=== PATIENT | male | born 1950 | race Caucasian/White ===

== ENCOUNTER 2022-07-20 21:18 | Inpatient (IN) ==
[2022-07-21 03:38] LABS: ABS Basophils 0.1 10^3/ul (0-0.2); ABS Eosinophils 0.9 10^3/ul (0-0.6); ABS Lymphocytes 2.1 10^3/ul (1.0-4.8); ABS Monocytes 1.1 10^3/ul (0-0.8); ABS Neutrophils 4.6 10^3/ul (1.5-7.7); Eosinophil % 10.2 %; Hematocrit 43 % (42-52); Hemoglobin 14.5 g/dL (14.0-18.0); Lymphocyte % 23.6 %; Mean Corpuscular HGB Conc 34 g/dL (31-36); Mean Corpuscular Hemoglobin 32 pg (27-31); Mean Corpuscular Volume 94 fL (80-94); Mean Platelet Volume 7.8 fL (7.4-10.4); Platelet Count 313 10^3/uL (150-450); Red Blood Count 4.55 10^6 /uL (4.18-5.48); Red Cell Distribution Width 13 % (10-15); White Blood Count 8.8 10^3/uL (3.5-10.8)
[2022-07-21 03:47] LABS: Activated Partial Thrombo Time 31.6 seconds (26.0-38.0); INR 1.3 (0.88-1.18)
[2022-07-21 04:26] LABS: ALT 21 U/L (7-52); Albumin 3.6 g/dL (3.2-5.2); Albumin/Globulin Ratio 1.4 (1-3); Alkaline Phosphatase 76 U/L (35-149); Blood Urea Nitrogen 16 mg/dL (6-24); C Reactive Protein 48.71 mg/L (<8.01); CO2 Carbon Dioxide 22 mmol/L (22-32); Calcium 8.8 mg/dL (8.6-10.3); Chloride 103 mmol/L (101-111); Creatinine, Serum 0.89 mg/dL (0.67-1.17); Globulin 2.6 g/dL (2-4); Glucose 104 mg/dL (70-100); Sodium 135 mmol/L (135-145); Total Protein 6.2 g/dL (6.4-8.9); eGFR CKD-EPI 92.2 (>60)
[2022-07-21 04:27] LABS: Anion Gap 10 mmol/L (2-11)
[2022-07-21] MEDS ORDERED: Albuterol/Ipratropium NEB.SOL (2.5/0.5 MG) 3 ML NEB.SOLN INH ONE (04:36)
[2022-07-21] MEDS ORDERED: Dexamethasone IV 4 MG/ML VIAL 1 ml VIAL IM ONE (06:13)
[2022-07-21] MEDS ORDERED: Iohexol 350 (CONTRAST) 500 ML MDV IV ONE (06:20)
[2022-07-21] MEDS: cefTRIAXone 1 gm/50 mL D5W 1 GM/50 ML BAG IV SCH (08:45)
[2022-07-21] MEDS ORDERED: Furosemide 20 mg/2 ml IV VIAL IV SLOW PU ONE (10:00)
[2022-07-21 10:35] LABS: Potassium Redraw 3.7 mmol/L (3.5-5.0)
[2022-07-21] MEDS: Azithromycin 500 mg/250 ml NS 500 MG/250 ML BAG IVPB SCH (10:40)
[2022-07-21] MEDS: Enoxaparin 40 MG/0.4 ML SYR SUBCUT SCH (10:41)
[2022-07-21] MEDS ORDERED: Calcium Carb (TUMS) 500 mg CHEW TAB PO PRN (14:47)
[2022-07-21] MEDS ORDERED: Bismuth Subsalicylate (BTL) 525 MG/30 ML (BULK BTL) PO PRN (14:49)
[2022-07-21] MEDS: guaiFENesin 100 mg/5 ml LIQ unit dose cup PO PRN (20:57)
[2022-07-22 06:07] LABS: ABS Basophils 0.1 10^3/ul (0-0.2); ABS Eosinophils 0.1 10^3/ul (0-0.6); ABS Lymphocytes 2.4 10^3/ul (1.0-4.8); ABS Neutrophils 5.7 10^3/ul (1.5-7.7); Eosinophil % 1.2 %; Hematocrit 41 % (42-52); Lymphocyte % 26.1 %; Mean Corpuscular HGB Conc 34 g/dL (31-36); Mean Corpuscular Hemoglobin 32 pg (27-31); Mean Corpuscular Volume 93 fL (80-94); Mean Platelet Volume 7.2 fL (7.4-10.4); Nucleated Red Blood Cells % 0.1; Platelet Count 308 10^3/uL (150-450); Red Blood Count 4.42 10^6 /uL (4.18-5.48); Red Cell Distribution Width 13 % (10-15); White Blood Count 9.4 10^3/uL (3.5-10.8)
[2022-07-22 06:16] LABS: CO2 Carbon Dioxide 24 mmol/L (22-32); Calcium 8.9 mg/dL (8.6-10.3); Chloride 108 mmol/L (101-111); Sodium 139 mmol/L (135-145)
[2022-07-22 06:22] LABS: Blood Urea Nitrogen 16 mg/dL (6-24); Glucose 125 mg/dL (70-100); eGFR CKD-EPI 95.2 (>60)
[2022-07-22 06:35] LABS: Anion Gap 7 mmol/L (2-11)
[2022-07-22] MEDS: cefTRIAXone 1 gm/50 mL D5W 1 GM/50 ML BAG IV SCH (08:37)
[2022-07-22] MEDS: Azithromycin 500 mg/250 ml NS 500 MG/250 ML BAG IVPB SCH (09:37)
[2022-07-22] MEDS: guaiFENesin 100 mg/5 ml LIQ unit dose cup PO PRN ×2 (09:46→20:27)
[2022-07-22] MEDS: Enoxaparin 40 MG/0.4 ML SYR SUBCUT SCH (09:46)
[2022-07-23] MEDS: Saline NASAL DROPS 0.65% BTL BOTH NARES PRN ×2 (03:04→07:47)
[2022-07-23 06:14] LABS: ABS Basophils 0.1 10^3/ul (0-0.2); ABS Eosinophils 0.8 10^3/ul (0-0.6); ABS Lymphocytes 2.5 10^3/ul (1.0-4.8); ABS Neutrophils 5.3 10^3/ul (1.5-7.7); Eosinophil % 7.9 %; Hematocrit 41 % (42-52); Hemoglobin 13.7 g/dL (14.0-18.0); Lymphocyte % 25.5 %; Mean Corpuscular HGB Conc 34 g/dL (31-36); Mean Corpuscular Hemoglobin 31 pg (27-31); Mean Corpuscular Volume 93 fL (80-94); Nucleated Red Blood Cells % 0.1; Platelet Count 294 10^3/uL (150-450); Red Blood Count 4.37 10^6 /uL (4.18-5.48); Red Cell Distribution Width 13 % (10-15); White Blood Count 9.7 10^3/uL (3.5-10.8)
[2022-07-23 06:30] LABS: CO2 Carbon Dioxide 24 mmol/L (22-32); Calcium 8.6 mg/dL (8.6-10.3); Chloride 107 mmol/L (101-111); Sodium 137 mmol/L (135-145)
[2022-07-23 06:34] LABS: Anion Gap 6 mmol/L (2-11)
[2022-07-23 06:36] LABS: Blood Urea Nitrogen 18 mg/dL (6-24); Creatinine, Serum 0.83 mg/dL (0.67-1.17); Glucose 110 mg/dL (70-100); eGFR CKD-EPI 94.2 (>60)
[2022-07-23 07:19] VITALS: BP 145/85
[2022-07-23] MEDS: cefTRIAXone 1 gm/50 mL D5W 1 GM/50 ML BAG IV SCH (08:03)
[2022-07-23] MEDS: Azithromycin 500 mg/250 ml NS 500 MG/250 ML BAG IVPB SCH (09:42)
[2022-07-23] MEDS: Enoxaparin 40 MG/0.4 ML SYR SUBCUT SCH (10:34)
== END 2022-07-23 11:15 | disposition home or self-care (01) | DRG 195 ==
LOC: ED 21:18 → EDHOLD 21:18 → MED 07-21 08:26
PROVIDERS: ADMIT Internal Medicine; ATTEND Internal Medicine

== ENCOUNTER 2023-12-30 08:32 | Observation (INO) ==
[~2023-12-30 08:32] MED LIST: Metoclopramide 5 MG/ML VIAL (10 mg) IV PRN; NS 0.45% 1000 ml BAG 1,000 ML IV SCH; Naloxone 0.4 mg VIAL 0.4 mg/ml 1 ml VIAL IV PRN; Ondansetron 4 mg VIAL 2 MG/ML 2 ml VIAL IV PRN; fentaNYL 100 mcg/2 ml 50 MCG/ML VIAL IV PRN
[2023-12-30 09:26] LABS: Rapid COVID-19 Molecular Undetected (Undetected)
[2023-12-30] MEDS ORDERED: Ondansetron 4 mg VIAL 2 MG/ML 2 ml VIAL IV PRN (09:30)
[2023-12-30] MEDS ORDERED: fentaNYL 100 mcg/2 ml 50 MCG/ML VIAL ONE ×4 (09:42→13:47)
[2023-12-30] MEDS ORDERED: Midazolam 2 mg/2 ml VIAL 1 mg/ml 2 ml VIAL (2 mg) ONE ×3 (09:42→12:41)
[2023-12-30] MEDS ORDERED: Propofol 10 MG/ML 20 ML BTL ONE ×3 (09:42→12:31)
[2023-12-30] MEDS ORDERED: Lidocaine 2% PF 5 ML VIAL ONE ×2 (09:42→12:31)
[2023-12-30] MEDS ORDERED: Dexamethasone IV 4 MG/ML VIAL 1 ml VIAL ONE ×2 (09:47→13:16)
[2023-12-30] MEDS ORDERED: Ondansetron 4 mg VIAL 2 MG/ML 2 ml VIAL ONE (09:47)
[2023-12-30] MEDS ORDERED: Rocuronium 50 mg VIAL 10 mg/ml 5 ml VIAL (50 mg) ONE (12:37)
[2023-12-30] MEDS ORDERED: Phenylephrine 40 mcg/mL 10mL (400mcg) SYRINGE ONE (13:27)
[2023-12-30] MEDS ORDERED: Furosemide 20 mg/2 ml IV VIAL ONE (14:27)
[2023-12-30] MEDS ORDERED: Flumazenil 0.5 mg/5 ml 0.1 MG/ML 5 ml VIAL ONE (15:09)
[2023-12-30] MEDS: Scopolamine 1 mg/72hr PATCH TRANSDERM ONE (17:26)
[2023-12-30] MEDS: Lactated Ringers 1000 ml BAG 1,000 ML IV SCH (17:26)
[2023-12-30] MEDS: Buffered Lidocaine 1% SYRIN 1 ml INTRADERM ONE (17:26)
[2023-12-30] MEDS: Ampicillin ADVAN 2 GM in NS 0.9% 100 ML 100 ML IVPB ONE (17:27)
[2023-12-30] MEDS: NS 0.9% IVPB ONE (17:27)
[2023-12-30] MEDS: NS 0.9% 1000 ml BAG 1,000 ML IV SCH (17:27)
[2023-12-30] MEDS: GENTAMICIN ADULT IVPB ONE (17:27)
[2023-12-30] MEDS: Neomycin/Polym/Bacit TOP OINT 15 GM TOPICAL SCH (17:28)
[2023-12-30] MEDS: Magnesium Hydroxide LIQ 30 ML UDC PO SCH (20:17)
[2023-12-31] MEDS ORDERED: Lisinopril/HCTZ 20/12.5 TB(NF) PO SCH (09:00)
[2023-12-31 10:27] VITALS: BP 140/89
== END 2023-12-31 12:05 | disposition home or self-care (01) ==
LOC: SSU 08:32 → OR 08:32
PROVIDERS: ADMIT Urology; ATTEND Urology